=== PATIENT | female | born 1950 | race Caucasian/White ===

== ENCOUNTER 2016-03-06 08:53 | Emergency (ER) | payer MEDICARE, OTHER ==
[~2016-03-06] VITALS: Ht 157.5 cm; Wt 127.3 kg
[~2016-03-06 08:53] MED LIST: ALBU8.5H2 IH; BUTA1CAP39 PO; CLON0.3T PO; DULO60CA42 PO; EXEN5PEN2 SQ; FLUT16SP2 NS; FURO-128 PO; GABA300C PO; HYDR2TAB27 PO; INSU100V7 SUBQ; INSU3INS3 SUBQ; IPRA3AMP IH; LOVA20TA PO; METF500T4 PO; METO-272 PO; NORT25CA PO; OMEP-113 PO; POTA10CA42 PO; RIZA10TA26 PO; SOMA350 PO; SYMINH IH; [UNRECOGNIZED DRUG - CODE] PO
[2016-03-06 08:58] VITALS: BP 190/100; PULSE 86; RESP 15; O2SAT 94
--- NOTE | 2016-03-06 09:09 | ED.REPORT ---
HPI-Abd Pain F 40 and Over Date of Service Mar 06, 2016 ED Provider: Edwin Lugo MD Pt is a 65 year old female with a hx of DM, pancreatitis, rectal cancer, migraines and on 3L O2 at home for restrictive lung disease presenting to the ED complaining of 8/10 abdominal pain radiating around the left side onset 6 weeks ago. Associated symptoms include nausea, constipation (last BM 3 days ago) , SOB, back pain, vomiting x1 last night, swelling. She describes the pain as sometimes sharp and tight, at other times hot. Denies fever, blood in stool, chest pain, diarrhea, dysuria, cough, congestion. She denies hx of gallstones, kidney stones or abdominal surgery. Nursing Notes Stated Complaint: ABDOMINAL AND SIDE PAIN Chief Complaint: Female Abdominal Pain Nursing Notes Reviewed: Yes Allergies: Coded Allergies: divalproex sodium (Verified Allergy, Unknown, ANAPHYLAXIS, 05/20/14) hydrochlorothiazide (Verified Allergy, Unknown, UNKNOWN, 05/20/14) lisinopril (Verified Allergy, Unknown, COUGH, 05/20/14) Scheduled Budesonide/Formoterol 160-4.5 mcg Inh (Symbicort 160-4.5 mcg Inh) 1 Puff Inha 2 PUFF IH BID Clonidine (Clonidine) 0.3 Mg Tablet 0.12 MG PO BID Duloxetine (Cymbalta) 60 Mg Capsule.dr 120 MG PO DAILY Exenatide Inj (Byetta Inj) 5 Mcg/0.02 Ml Pen.injctr 5 MCG SQ BID Fluticasone Propionate (Flonase Nasal) 16 Gm [place].susp 1 SPRAY NS DAILY Furosemide (Lasix) 40 Mg Tablet 80 MG PO BID Gabapentin (Neurontin) 300 Mg Capsule 300 MG PO TID Insulin Glargine (Lantus U100 Insulin Vial) 100 Unit/Ml Vial 50 UNIT SUBQ QPM- INSULIN Insulin Glargine (Lantus U100 Insulin Vial) 100 Unit/Ml Vial 70 UNIT SUBQ Q am Insuln Asp Prt/Insulin Aspart (NovoLOG 70/30 U100 Insulin Flexpen) 100 Unit/Ml Unit 1 UNIT SUBQ HS Ipratropium/Albuterol Sulfate (Iprat-Albut 0.5-3(2.5) mg/3 mL Inhalant Soln) 3 Ml Ampul.neb 3 ML IH QID Lovastatin (Lovastatin) 20 Mg Tablet 20 MG PO HS Metformin (Metformin) 500 Mg Tablet 1,500 MG PO q am Metformin (Metformin) 500 Mg Tablet 1,000 MG PO q pm Metoprolol Succinate ER (Metoprolol Succinate ER) 50 Mg Tab.er.24h 50 MG PO BID Naproxen Sodium (Aleve) 220 Mg Tablet 440 MG PO HS Nortriptyline (Nortriptyline) 25 Mg Capsule 25 MG PO HS Omeprazole Magnesium (Omeprazole) 20 Mg Capsule.dr 20 MG PO BID Polyethylene Glycol 3350 (Miralax) 17 Gm Powd.pack 17 GM PO DAILY Potassium Chloride (Potassium Chloride) 10 Meq Capsule.er 30 MEQ PO DAILY TAKE WITH FOOD Scheduled PRN Albuterol HFA (Proair HFA) 8.5 Gm Hfa.aer.ad 2 PUFFS IH Q4-6H PRN PRN For Wheezing Albuterol HFA (Proair HFA) 8.5 Gm Hfa.aer.ad 2 PUFFS IH Q4-6H PRN PRN For Wheezing Butalbital/Acetamin/Caff 50-300-40 mg (Fioricet 50-300-40 mg) 1 Each Capsule 1- 2 EACH PO Q4 PRN PRN For Pain Carisoprodol (Carisoprodol) 350 Mg Tab 350 MG PO Q4 PRN PRN For Pain Docusate Sodium (Colace) 100 Mg Capsule 100 MG PO BID PRN PRN For Constipation Hydromorphone (Dilaudid) 2 Mg Tablet 1 MG PO Q4-6H PRN PRN For Pain Rizatriptan (Maxalt) 10 Mg Tablet 10 MG PO PRN PRN PRN For Pain General Time Seen by MD: 09:04 Chief Complaint Abdominal pain Hx Obtained From: Patient Arrived By: Walk-in Sudden in Onset?: No Onset Occurred: More than a week ago... (6 weeks) Symptom Duration: Since onset Progression since Onset: Constant Location: : LUQ Quality: Burning, Painful, Sharp Radiation: : Flank left Severity: Current: Pain level 8 out of 10 Severity: Maximum: Severe Associated with: Reports: Back pain, Constipation, Nausea, Vomiting, Denies: Chest pain, Diarrhea, Dysuria, Fever, Hematuria, Shortness of breath Recent Healthcare: No recent hospitalization, Recent doctor visit Similar Sx Previous: No Past Medical History Past Medical History Rectal cancer Pancreatitis 2009 related to Migraine medication (Depakote) Migraines Dyspnea on 3L O2 at home Pneumonia PE many years ago following neck surgery Back injury Reports: Asthma, Congestive heart failure, Hypertension Past Surgical History Last Colonoscopy was 10 years ago Neck surgery Smoking History Never Smoker Social History Alcohol Use: "Social" Ambulatory Status Independent Review of Systems Constitutional: Denies: Fever Respiratory: Reports: Shortness of breath, Denies: Non-productive cough Cardiovascular: Denies: Chest pain GI: Reports: Abdominal pain, Constipation, Nausea, Vomiting, Denies: Bloody/tarry stool, Diarrhea Female: Denies: Dysuria Musculoskeletal: Reports: Back pain, Extremity swelling Complete sys rev & neg: except as marked. Ears / Nose / Throat: Denies: Nasal congestion Physical Exam Vital Signs Vital Signs (First) Date Time Temp Pulse Resp B/P Pulse Ox O2 Delivery O2 Flow Rate FiO2 03/06/16 08:58 36.2 86 15 190/100 94 Nasal Cannula Initial VS: Reviewed Head / Eyes: Atraumatic, Normocephalic, PERRL ENT: Mucous membranes moist, Conjunctiva normal, No scleral icterus Neck: Supple, Non-tender, Full range of motion Skin: Warm, Dry, No cyanosis Neurologic: Alert, Oriented, Nonfocal Psychiatric: Mood/affect normal, Behavior normal, Normal thought content General/Constitutional: Awake, Alert, No acute distress, Well appearing Respiratory / Chest: No respiratory distress On Oxygen non labored breathing. Bilateral crackles. Abdomen: No guarding, No rebound Tenderness/Guarding/Rebound: Positive: Tender diffuse Increasing epigastric LUQ RUQ. Lower Extremity / Pelvis / MS: Neurologic intact, Vascular intact 1+ bilateral edema. Interpretation & Diagnostics Lab Results Interpretation Result Diagram: 03/06/16 0956 03/06/16 0956 Test 03/06/16 09:56 03/06/16 11:18 White Blood Count 7.8th/mm3 (3.8-10.1) Red Blood Count 3.92mil/mm3 (3.90-5.20) Hemoglobin 10.2g/dL (12.0-15.6) Hematocrit 34.4% (35.0-46.0) Mean Corpuscular Volume 87.8fL (81-100) Mean Corpuscular Hemoglobin 26.0pg (27.0-35.0) Mean Corpuscular Hemoglobin Concent 29.7% (32.0-37.0) Red Cell Distribution Width 15.3% (12.3-15.4) Platelet Count 249bil/L (150-400) Neutrophils (%) (Auto) 75.1% (40-74) Lymphocytes (%) (Auto) 15.1% (14-46) Monocytes (%) (Auto) 7.1% (4-12) Eosinophils (%) (Auto) 2.0% (0-5) Basophils (%) (Auto) 0.3% (0-3) Prothrombin Time 10.3sec (8.1-12.5) Prothromb Time International Ratio 0.96ratio D-Dimer 0.6mg/L (<0.50) Sodium Level 138mEq/L (134-144) Potassium Level 4.4mEq/L (3.5-5.2) Chloride Level 94mEq/L (97-108) Carbon Dioxide Level 32mmol/L (18-29) Blood Urea Nitrogen 12mg/dL (8-27) Creatinine 0.64mg/dL (0.57-1.00) Estimat Glomerular Filtration Rate 133mL/min (>59) Glucose Level 245mg/dL (60-99) Calcium Level 9.6mg/dL (8.5-10.1) Magnesium Level 1.6mg/dL (1.6-2.6) Total Bilirubin 0.4mg/dL (0.0-1.2) Aspartate Amino Transf (AST/SGOT) 14U/L (0-50) Alanine Aminotransferase (ALT/SGPT) 17U/L (0-32) Alkaline Phosphatase 110U/L (25-165) Troponin T 0.010ug/L (0.0-0.011) Total Protein 7.7g/dL (6.4-8.4) Albumin 4.1g/dL (3.4-5.0) Lipase 22U/L (13-60) Urine Color Straw (YELLOW) Urine Appearance Clear (CLEAR,HAZY) Urine pH 7.0 (5.0-8.0) Urine Specific [place] 1.013 (1.003-1.035) Urine Protein Negativemg/dL (NEG,TRACE) Urine Glucose (UA) 100mg/dL (NEGATIVE) Urine Ketones Negativemg/dL (NEGATIVE) Urine Occult Blood Trace (NEGATIVE) Urine Nitrite Negative (NEGATIVE) Urine Bilirubin Negative (NEGATIVE) Urine Urobilinogen Normalmg/dL (NORMAL) Urine Leukocyte Esterase Negative (NEGATIVE) Urine RBC 0-2/hpf (0-2) Urine WBC 0-5/hpf (0-5) Urine Epithelial Cells Few/hpf (NONE-MOD) Urine Crystals None seen (NONE SEEN) Urine Bacteria None/hpf (NONE-FEW) Urine Hyaline Casts None/lpf (NONE) Urine Granular Casts None seen (NONE SEEN) Urine Waxy Casts None seen (NONE SEEN) Urine Red Blood Cell Casts None seen (NONE SEEN) Urine White Blood Cell Casts None seen (NONE SEEN) Urine Mucus None seen (None Seen) Urine Trichomonas None seen (NONE SEEN) Urine Yeast None (NONE SEEN) Urinalysis Comment None Urine Culture Reflexed Not indicated ECG Interpretation ECG Interpretation: Q waves in 3. No ST changes. Time: 10:19 Interpreted by: ED physician Normal ECG Interpretation: Normal rate (77), Normal sinus rhythm X-Ray Chest Interpretation Chest Xray Interpretation: IMPRESSION: Left basilar atelectasis or pneumonia. Dictated by: Kala Martinez M.D. on 03/06/2016 at 9:40 View: Portable, 1 view Interpretation / Wet Read by: Interpret - Radiologist CT Chest Interpretation IMPRESSION: 1. No evidence for acute central pulmonary embolism. 2. Bilateral ground glass infiltrates and areas of trapping. Dictated by: Kala Martinez M.D. on 03/06/2016 at 12:04 Study type: CT pulm angiogram Interpretation / Wet Read by: Interpret - Radiologist CT Abd / Pelvis Interpretation IMPRESSION: 1. No acute intra-abdominal/pelvic process. 2. Hepatic steatosis. 3. Diverticulosis. No active diverticulitis. Dictated by: Kala Martinez M.D. on 03/06/2016 at 12:16 Study type: Abdominal CT IV contrast Interpretation / Wet Read by: Interpret - Radiologist Re-Eval/Medical Decision Med Decision/Clinical Course 65-year-old female history of rectal cancer status post resection, diabetes, pancreatitis, diabetes presenting complaining of abdominal pain 3 weeks. Epigastric left upper quadrant tenderness no rebound or guarding. Bowel sounds stable. Labs unremarkable. No evidence of pancreatitis or infection. CT abdomen and pelvis with diverticulosis no acute pathology. D-dimer mildly elevated at 0.6 with history of PE in the past therefore CT Angio chest performed with no evidence of PE. Patient with complaint of constipation. Will be treated with MiraLAX and stool softener. Return precautions given. Her abdominal pain resolved completely prior to discharge. Follow-up primary doctor 2-3 days as needed. Re-Evaluation/Progress #1: Time of Eval: 09:25 Patient Status: Condition improved Re-Evaluation/Progress Note: Discussed plan for CT scan with contrast. Re-Evaluation/Progress #2: Time of Eval: 11:35 Patient Status: Condition improved Re-Evaluation/Progress Note: Discussed lab results and plan for chest CT as well due to elevated D-dimer. Pain is improved. Counseled Regarding: Diagnosis, Lab results, Need for follow-up, When/why to return to ED Discharge & Departure Primary Impression: Abdominal pain Abdominal location: generalized Qualified Code: R10.84 - Generalized abdominal pain Additional Impression: Diverticulosis Diverticulosis site: unspecified location Diverticulosis bleeding: diverticulosis without bleeding Qualified Code: K57.90 - Diverticulosis of intestine, part unspecified, without perforation or abscess without bleeding Disposition: Home Discharge Condition All VS Reviewed: Yes Condition: Improved Additional Instructions: All of your scans and labs came back normal. No dangerous cause for your abdominal pain was identified. Take Miralax, 1 cap full per night mixed with Powerade or Gatorade. Take the stool softener twice a day as well. Return to the ER with any new or worsening symptoms. Follow up with your primary care doctor if your symptoms persist. Referrals: Wil Bautista MD (PCP) Kavin Dobson MD Attestation Portions of this note were transcribed by Neelima. I, Dr. Lugo personally performed the history, physical exam and medical decision-making; I reviewed and confirmed the accuracy of the information in the transcribed note. Signed by: Erika Carson, 03/06/2016 and 1252. copies to: Wil Bautista MD; Kavin Dobson MD, Ben M MD Mar 06, 2016 09:09 NEELIMA GIPSON Mar 06, 2016 09:32
[2016-03-06] MEDS ORDERED: 0.9% Sodium Chloride 1,000 ML IV ONE (09:21)
[2016-03-06] MEDS ORDERED: Ondansetron 2 mg/mL 2 mL Inj IVPUSH PRN (09:25)
[2016-03-06] MEDS ORDERED: Iohexol 300 mg/mL 30 mL Inj PO ONE (09:25)
--- NOTE | 2016-03-06 09:42 | DRSVH ---
PROCEDURE: X-RAY CHEST ONE VIEW, PORTABLE ([id number]) INDICATIONS: dyspnea TECHNIQUE: One view of the chest was acquired. COMPARISON: [facility], CT, CT ABD PELVIS W CON, 02/03/2016, 12:15. [facility], CR, CHEST 1VW (PORTABLE), 03/07/2013, 16:38. FINDINGS: Surgical changes and devices: Surgical clips in the left breast. Lungs and pleura: The basilar opacity may be atelectasis or infiltrate. No pleural effusions or pneum othorax. Mediastinum: Mediastinal contours appear normal. Heart size is normal. Bones and chest wall: No suspicious bony lesions. Overlying soft tissues appear unremarkable. IMPRESSION: Left basilar atelectasis or pneumonia. Dictated by: Kala Martinez M.D. on 03/06/2016 at 9:40 Approved by: Kala Martinez M.D. on 03/06/2016 at 9:42
[2016-03-06 10:09] LABS: BASOPHILS % (AUTO) 0.3 % (0-3); MONOCYTES % (AUTO) 7.1 % (4-12); Mean Corpuscular Volume 87.8 fL (81-100); NEUTROPHILS % (AUTO) 75.1 % (40-74); Platelet Count 249 bil/L (150-400)
[2016-03-06 10:29] LABS: INR 0.96 ratio
[2016-03-06 10:37] LABS: TROPONIN T 0.01 ug/L (0.0-0.011)
[2016-03-06 10:48] LABS: Magnesium 1.6 mg/dL (1.6-2.6)
[2016-03-06 12:14] LABS: APPEARANCE,URINE CLEAR (CLEAR,HAZY); COLOR,URINE STRAW (YELLOW); OCCULT BLOOD,URINE TRACE (NEGATIVE); UROBILINOGEN,URINE NORMAL (NORMAL)
--- NOTE | 2016-03-06 12:15 | DRSVH ---
PROCEDURE: CT ANGIO CHEST PULMONARY EMBOLISM ([id number]) INDICATIONS: 65 year old woman with dyspnea elevated ddimer, h/o PE. TECHNIQUE: After the administration of intravenous contrast, 2 mm thick sections acquired from the pulmonary api devi to the posterior costophrenic angles. 3-dimensional maximum intensity projection (MIP) coronal a nd sagittal reformats were then acquired through the thorax. For radiation dose reduction, the follo wing was used: automated exposure control, adjustment of mA and/or kV according to patient size. COMPARISON: [facility], CR, XR CHEST 1VW (PORTABLE), 03/06/2016, 9:21. [facility], CT, CT CHEST HIGH RESOLUTION, 09/26/2015, 14:15. [facility], CT, CHEST ANGIO-PE, , 18:37. FINDINGS: Image quality: Excellent. Pulmonary arteries: Pulmonary arteries are normal in size, and demonstrate no intraluminal filling d efects to suggest central pulmonary embolism. Lungs and pleura: There are bilateral ground glass infiltrates. Area of lucency suggests air trapping . No pleural effusions or pneumothorax. Central and peripheral airways are patent. Mediastinum: Heart size is normal, without pericardial effusion. Borderline enlarged mediastinal ly mph nodes are noted measuring up to 1 cm in the subcarinal region. Thoracic aorta is normal in calib er and enhancement. Esophagus is normal in caliber, without hiatal hernia. Bones and chest wall: No suspicious bony lesions. Ribs and thoracic spine appear intact throughout. Thyroid gland is normal. No axillary or supraclavicular adenopathy. Abdomen: Mild hepatic fatty infiltration. Visualized upper abdominal solid organs otherwise appear n ormal in the early arterial phase of enhancement. IMPRESSION: 1. No evidence for acute central pulmonary embolism. 2. Bilateral ground glass infiltrates and air trapping. 3. Borderline enlarged mediastinal lymph nodes, most likely reactive. Dictated by: Kala Martinez M.D. on 03/06/2016 at 12:04 Transcribed by: KRISTEN on 03/06/2016 at 12:16 Approved by: Kala Martinez M.D. on 03/07/2016 at 10:09
--- NOTE | 2016-03-06 12:21 | DRSVH ---
PROCEDURE: CT ABDOMEN AND PELVIS WITH CONTRAST ([id number]) INDICATIONS: Left upper quadrant abdominal pain. TECHNIQUE: After the administration of intravenous contrast, 5 mm thick sections acquired from the diaphragm to the symphysis. 5 mm coronal and sagittal reformats were acquired. For radiation dose reduction, the following was used: automated exposure control, adjustment of mA and/or kV according to patient siz e. COMPARISON: [facility], CT, CT ABD PELVIS W CON, 02/03/2016, 12:15. FINDINGS: Image quality: Excellent. ABDOMEN: Lung bases: Groundglass infiltrates in lung bases with mosaic attenuation. Heart size is normal. Solid organs: There is diffuse hepatic fatty infiltration. Liver and spleen are normal in size and e nhancement. Gallbladder is normal. Biliary system is non dilated. Pancreas enhances normally. No adrenal nodules. Low density nodules in kidneys are likely renal cysts. Kidneys demonstrate normal s ize and enhancement, without hydronephrosis. Peritoneum and bowel: There are scattered colonic diverticula. No evidence for active diverticulitis . Normal appearance of appendix. Bowel loops demonstrate normal wall thickness and caliber. No free fluid or air. Nodes and vessels: No retroperitoneal or mesenteric adenopathy by size criteria. Aorta and inferior vena cava are normal in size. Miscellaneous: No ventral hernias. PELVIS: Genitourinary: Bladder wall thickness is normal. Miscellaneous: No inguinal hernias or adenopathy. Bones: No suspicious bony lesions. No vertebral body compression fractures. IMPRESSION: 1. No acute intra-abdominal/pelvic process. 2. Hepatic steatosis. 3. Diverticulosis. No active diverticulitis. Dictated by: Kala Martinez M.D. on 03/06/2016 at 12:16 Approved by: Kala Martinez M.D. on 03/06/2016 at 12:20
[2016-03-06] MEDS ORDERED: POLY17PO6 PO (12:50)
[2016-03-06] MEDS ORDERED: DOCU-41 PO (12:50)
[2016-03-06 13:04] VITALS: BP 177/87; PULSE 78; RESP 19; O2SAT 96
== END 2016-03-06 13:07 | disposition home or self-care (01) ==
LOC: SED 08:53
DX: R10.84 Generalized abdominal pain (principal); K57.90 Diverticulosis of intestine, part unspecified, without perforation or abscess without bleeding; R06.02 Shortness of breath; M54.9 Dorsalgia, unspecified; I11.0 Hypertensive heart disease with heart failure; E11.59 Type 2 diabetes mellitus with other circulatory complications; I50.9 Heart failure, unspecified; J45.909 Unspecified asthma, uncomplicated; E11.9 Type 2 diabetes mellitus without complications; Z79.4 Long term (current) use of insulin; Z79.84 Long term (current) use of oral hypoglycemic drugs; Z88.8 Allergy status to other drugs, medicaments and biological substances
CPT/HCPCS: 36415; 71010; 71275; 74177; 80053; 81000; 83690; 83735; 84484; 85025; 85379; 85610; 93005; 96361; 96374; 96375; 96376; 99285; J2270; J2405; J7030; Q9967

== ENCOUNTER 2016-06-15 11:07 | Emergency (ER) | payer MEDICARE, OTHER ==
[~2016-06-15 11:07] MED LIST changes: +DOCU-41 PO; +POLY17PO6 PO
--- NOTE | 2016-06-15 11:18 | ED.REPORT ---
HPI-Extremity Problem Lower Date of Service June 15, 2016 ED Provider: The patient is a 65 year old female with history of asthma, hypertension, congestive heart failure on 3L O2 at home, pulmonary embolism, rectal cancer, and pancreatitis who was brought to the emergency department by EMS for left groin pain. The patient states she was walking out of the restroom and turned direction when she felt a "tear/pop." She felt pain immediately. She was given fentanyl by medics with moderate pain relief. She has not been able to walk since the injury occurred. She denies any other injuries or traumas. She did not fall or hit her head. Nursing Notes Stated Complaint: LEFT HIP PAIN Nursing Notes Reviewed: Yes Allergies: Coded Allergies: divalproex sodium (Verified Allergy, Unknown, ANAPHYLAXIS, 05/20/14) hydrochlorothiazide (Verified Allergy, Unknown, UNKNOWN, 05/20/14) lisinopril (Verified Allergy, Unknown, COUGH, 05/20/14) Scheduled Budesonide/Formoterol 160-4.5 mcg Inh (Symbicort 160-4.5 mcg Inh) 1 Puff Inha 2 PUFF IH BID Clonidine (Clonidine) 0.3 Mg Tablet 0.12 MG PO BID Duloxetine (Cymbalta) 60 Mg Capsule.dr 120 MG PO DAILY Exenatide Inj (Byetta Inj) 5 Mcg/0.02 Ml Pen.injctr 5 MCG SQ BID Fluticasone Propionate (Flonase Nasal) 16 Gm [place].susp 1 SPRAY NS DAILY Furosemide (Lasix) 40 Mg Tablet 80 MG PO BID Gabapentin (Neurontin) 300 Mg Capsule 300 MG PO TID Insulin Glargine (Lantus U100 Insulin Vial) 100 Unit/Ml Vial 50 UNIT SUBQ QPM- INSULIN Insulin Glargine (Lantus U100 Insulin Vial) 100 Unit/Ml Vial 70 UNIT SUBQ Q am Insuln Asp Prt/Insulin Aspart (NovoLOG 70/30 U100 Insulin Flexpen) 100 Unit/Ml Unit 1 UNIT SUBQ HS Ipratropium/Albuterol Sulfate (Iprat-Albut 0.5-3(2.5) mg/3 mL Inhalant Soln) 3 Ml Ampul.neb 3 ML IH QID Lovastatin (Lovastatin) 20 Mg Tablet 20 MG PO HS Metformin (Metformin) 500 Mg Tablet 1,500 MG PO q am Metformin (Metformin) 500 Mg Tablet 1,000 MG PO q pm Metoprolol Succinate ER (Metoprolol Succinate ER) 50 Mg Tab.er.24h 50 MG PO BID Naproxen Sodium (Aleve) 220 Mg Tablet 440 MG PO HS Nortriptyline (Nortriptyline) 25 Mg Capsule 25 MG PO HS Omeprazole Magnesium (Omeprazole) 20 Mg Capsule.dr 20 MG PO BID Polyethylene Glycol 3350 (Miralax) 17 Gm Powd.pack 17 GM PO DAILY Potassium Chloride (Potassium Chloride) 10 Meq Capsule.er 30 MEQ PO DAILY TAKE WITH FOOD Scheduled PRN Albuterol HFA (Proair HFA) 8.5 Gm Hfa.aer.ad 2 PUFFS IH Q4-6H PRN PRN For Wheezing Albuterol HFA (Proair HFA) 8.5 Gm Hfa.aer.ad 2 PUFFS IH Q4-6H PRN PRN For Wheezing Butalbital/Acetamin/Caff 50-300-40 mg (Fioricet 50-300-40 mg) 1 Each Capsule 1- 2 EACH PO Q4 PRN PRN For Pain Carisoprodol (Carisoprodol) 350 Mg Tab 350 MG PO Q4 PRN PRN For Pain Docusate Sodium (Colace) 100 Mg Capsule 100 MG PO BID PRN PRN For Constipation Hydromorphone (Dilaudid) 2 Mg Tablet 1 MG PO Q4-6H PRN PRN For Pain Rizatriptan (Maxalt) 10 Mg Tablet 10 MG PO PRN PRN PRN For Pain General Time Seen by MD: 11:17 Chief Complaint Other (left groin pain) Hx Obtained From: Patient, Spouse, EMS Arrived By: Ambulance Onset Occurred: Just prior to arrival Context of Onset: Other (walking) Symptom Duration: Since onset Context: Occurred at: Home injury Location: : Hip left (and left groin) Quality: Painful Severity: Current: Moderate Severity: Maximum: Severe Pertinent Negative: Pt denies other symptoms Exacerbated by: Range of motion, Movement Recent Healthcare: No recent doctor visit, No recent hospitalization Similar Sx Previous: No Past Medical History Past Medical History Rectal cancer Pancreatitis 2009 related to Migraine medication (Depakote) Migraines Dyspnea on 3L O2 at home Pneumonia PE many years ago following neck surgery Back injury Reports: Asthma, Congestive heart failure, Hypertension Past Surgical History Last Colonoscopy was 10 years ago Neck surgery Family History Noncontributory Smoking History Never Smoker Social History Alcohol Use: "Social" Other Social History: Good social support, , Local resident Ambulatory Status Independent Review of Systems Musculoskeletal: Reports: Joint pain, Denies: Back pain, Neck pain Neurologic: Denies: Change LOC, Headache, Syncope Complete sys rev & neg: except as marked. Physical Exam Initial Vital Signs Vital Signs (First) Date Time Temp Pulse Resp B/P Pulse Ox O2 Delivery O2 Flow Rate FiO2 06/15/16 11:22 36.8 87 20 215/94 99 Nasal Cannula 4 Initial VS: Reviewed General/Constitutional: Well-developed, Well-nourished Head / Eyes: Atraumatic, Normocephalic, PERRL ENT: Mucous membranes moist, Conjunctiva normal, No scleral icterus Neck: Supple, Non-tender, Full range of motion Respiratory: Breath sounds normal, Clear to auscultation, No respiratory distress Cardiovascular: Regular rate & rhythm, Heart sounds normal, Intact distal pulses Abdomen / GI: Soft, Non-tender, No guarding, No rebound, No distention Upper Extremities: Vascular intact, Neuro intact, No swelling, No tenderness Skin: Warm, Dry, No cyanosis Neurologic: Alert, Oriented, Nonfocal Psychiatric: Mood/affect normal, Behavior normal, Normal thought content Lower Extremity / Pelvis / MS: Neurologic intact, Vascular intact FROM of left hip but she does have increased pain with movement of her left leg. No bony deformity. No swelling. No bruising. Ankle / Foot: Neurologic intact, Vascular intact Interpretation & Diagnostics X-Ray Interpretation Xray Interpretation: IMPRESSION: 1. Degenerative change. No acute radiographic findings. If there is Guero suspicion for occult fracture, CT of the hip is recommended. Dictated by: Cassi Ceron M.D. on 06/15/2016 at 12:12 X-Ray Ordered: Pelvis, Hip left Interpretation / Wet Read by: Interpret - Radiologist Re-Eval/Medical Decision Med Decision/Clinical Course 65-year-old female complaining of left hip pain started when she turned ball moving today. Tender left lower extremity proximal lateral hip. Left hip full range of motion no tenderness on range of motion. X-ray no fracture. Patient ambulatory pain improved with Toradol. Likely strain versus sprain. Recommend follow-up with primary doctor. Return precautions given. Monty. Source of Hx: Old records, EMS, Family Re-Evaluation/Progress : Time of Eval: 12:42 Re-Evaluation/Progress Note: Rechecked the patient. Discussed plan for discharge. All questions were addressed. Counseled Regarding: Diagnosis, Need for follow-up, When/why to return to ED Discharge & Departure Impression: Primary Impression: Left hip pain Additional Impression: Muscle strain Disposition: Home Discharge Condition All VS Reviewed: Yes Condition: Stable Additional Instructions: Thank you for entrusting us with your care today. Your x-ray of your left hip today is reassuring. There is no evidence of any acute fractures. Weight bear as tolerated Take ibuprofen as needed for your pain. Followup with your primary doctor in 1 week if your pain persists. Seek care sooner for increased pain, numbness, weakness, or any other new or concerning symptoms. Referrals: Wil Bautista MD (PCP) Scribe Attestation Portions of this note were transcribed by Josey Stover. I, Dr. Lugo personally performed the history, physical exam and medical decision-making; I reviewed and confirmed the accuracy of the information in the transcribed note. Signed by: Erika Tyson, 06/15/2016 at 1255. copies to: Wil Bautista MD, Ben M MD June 15, 2016 11:18 Josey Stover June 15, 2016 11:26
[2016-06-15 11:22] VITALS: BP 215/94; PULSE 87; RESP 20; O2SAT 99
--- NOTE | 2016-06-15 12:14 | DRSVH ---
PROCEDURE: X-RAY PELVIS W/LAT HIP (LT) ([id number]) INDICATIONS: L hip pain unable to ambulate TECHNIQUE: AP pelvis with lateral view(s) of the left hip(s). COMPARISON: None. FINDINGS: Bones: Severe degenerative changes are present at the right hip joint. Moderate degenerative changes are present at the left hip joint. No acute fracture dislocation visualized. Soft tissues: The visualized bowel gas pattern is normal. No suspicious soft tissue calcifications. Surgical clips are projected over the left obturator ring. IMPRESSION: 1. Degenerative change. No acute radiographic findings. If there is Guero suspicion for occult frac ture, CT of the hip is recommended. Dictated by: Cassi Ceron M.D. on 06/15/2016 at 12:12 Approved by: Cassi Ceron M.D. on 06/15/2016 at 12:13
[2016-06-15 13:40] VITALS: BP 168/92; PULSE 87; RESP 20; O2SAT 99
== END 2016-06-15 13:49 | disposition home or self-care (01) ==
LOC: SED 11:07 → EDBD 11:07 → SED 13:49
DX: S76.012A Strain of muscle, fascia and tendon of left hip, initial encounter (principal); X50.0XXA Overexertion from strenuous movement or load, initial encounter; Y93.01 Activity, walking, marching and hiking; Y92.019 Unspecified place in single-family (private) house as the place of occurrence of the external cause; Y99.8 Other external cause status; I11.0 Hypertensive heart disease with heart failure; J45.909 Unspecified asthma, uncomplicated; Z79.4 Long term (current) use of insulin; Z79.84 Long term (current) use of oral hypoglycemic drugs; Z88.8 Allergy status to other drugs, medicaments and biological substances
CPT/HCPCS: 73501; 96374; 99284; J1885

== ENCOUNTER 2016-10-20 14:56 | Emergency (ER) | payer MEDICARE, OTHER ==
[~2016-10-20] VITALS: Ht 157.5 cm; Wt 129.6 kg
[~2016-10-20 14:56] MED LIST changes: -METO-272 PO; +METO-369 PO
[2016-10-20 15:09] VITALS: BP 148/57; PULSE 72; RESP 18; O2SAT 90
[2016-10-20 15:33] LABS: BASOPHILS % (AUTO) 0.5 % (0-3); EOSINOPHILS % (AUTO) 2.7 % (0-5); MONOCYTES % (AUTO) 9.4 % (4-12); Mean Corpuscular Hemoglobin 26.3 pg (27.0-35.0); Mean Corpuscular Volume 85.4 fL (81-100); NEUTROPHILS % (AUTO) 60.8 % (40-74); Platelet Count 221 bil/L (150-400)
[2016-10-20 15:48] LABS: INR 0.92 ratio
--- NOTE | 2016-10-20 15:55 | DRSVH ---
PROCEDURE: X-RAY CHEST, TWO VIEWS ([id number]) INDICATIONS: 65 year-old female with weakness. TECHNIQUE: 2 views of the chest were acquired. COMPARISON: [facility], CR, XR CHEST 1VW (PORTABLE), 03/06/2016, 9:21. [facility], CR, CHEST 2VW, 08/06/2013, 12:15. [facility], CR, CHEST 2VW, 04/27/2013, 16:59. FINDINGS: Surgical changes and devices: Left breast surgical clips are again noted, as well as anterior cervica l spine fixation hardware. Lungs and pleura: There is new small loculated pleural fluid within the right minor fissure. No pneum othorax. Lungs are clear. Mediastinum: Mediastinal contours are normal. Mild cardiomegaly is unchanged. Bones and chest wall: No suspicious bony abnormalities. Soft tissues appear unremarkable. IMPRESSION: Mild cardiomegaly as before. New small loculated pleural fluid within the right minor fis sure is of uncertain etiology and clinical significance. Dictated by: Guillermo Infante M.D. on 10/20/2016 at 15:51 Approved by: Guillermo Infante M.D. on 10/20/2016 at 15:52
[2016-10-20 15:57] LABS: TROPONIN T < 0.010 ug/L (0.0-0.011)
[2016-10-20 16:06] LABS: Magnesium 1.7 mg/dL (1.6-2.6)
--- NOTE | 2016-10-20 16:08 | ED.REPORT ---
HPI-General Illness Date of Service Oct 20, 2016 ED Provider: Lul Juares MD Patient is a 65 year old female with a history of CHF, restrictive airway disease on 3L of oxygen at home, hypertension, previous PE, diabetes, rectal cancer and hypertension who presents to the ED via EMS after a ground level fall. She complains of bilateral knee pain, right ankle pain, generalized weakness at baseline and odorous/dark urine over the last couple days. Patient denies hitting her head, losing consciousness, headache, chest pain, dysuria, shortness of breath, abdominal pain, vomiting, diarrhea, slurred speech, facial droop or one sided weakness. Patient reports that she generally has knee pain due to her osteoarthritis but it has increased after her fall. She was trying to get out of her lift chair while at home when she fell on her knees to the ground. The patient states that she was unable to get up on her own after the fall and normally uses a cane/walker to help her walk inside and her wheelchair outside. Nursing Notes Stated Complaint: WEAKNESS Chief Complaint: General Complaint Nursing Notes Reviewed: Yes Allergies: Coded Allergies: divalproex sodium (Verified Allergy, Unknown, ANAPHYLAXIS, 10/20/16) hydrochlorothiazide (Verified Allergy, Unknown, UNKNOWN, 10/20/16) lisinopril (Verified Allergy, Unknown, COUGH, 10/20/16) Scheduled Budesonide/Formoterol 160-4.5 mcg Inh (Symbicort 160-4.5 mcg Inh) 1 Puff Inha 2 PUFF IH BID Ciprofloxacin (Ciprofloxacin) 500 Mg Tablet 500 MG PO BID Clonidine (Clonidine) 0.3 Mg Tablet 0.12 MG PO BID Duloxetine (Cymbalta) 60 Mg Capsule.dr 120 MG PO DAILY Exenatide Inj (Byetta Inj) 5 Mcg/0.02 Ml Pen.injctr 5 MCG SQ BID Fluticasone Propionate (Flonase Nasal) 16 Gm [place].susp 1 SPRAY NS DAILY Furosemide (Lasix) 40 Mg Tablet 80 MG PO BID Gabapentin (Neurontin) 300 Mg Capsule 300 MG PO TID Insulin Glargine (Lantus U100 Insulin Vial) 100 Unit/Ml Vial 50 UNIT SUBQ QPM- INSULIN Insulin Glargine (Lantus U100 Insulin Vial) 100 Unit/Ml Vial 70 UNIT SUBQ Q am Insuln Asp Prt/Insulin Aspart (NovoLOG 70/30 U100 Insulin Flexpen) 100 Unit/Ml Unit 1 UNIT SUBQ HS Ipratropium/Albuterol Sulfate (Iprat-Albut 0.5-3(2.5) mg/3 mL Inhalant Soln) 3 Ml Ampul.neb 3 ML IH QID Lovastatin (Lovastatin) 20 Mg Tablet 20 MG PO HS Metformin (Metformin) 500 Mg Tablet 1,500 MG PO q am Metformin (Metformin) 500 Mg Tablet 1,000 MG PO q pm Metoprolol Succinate ER (Metoprolol Succinate ER) 50 Mg Tab.er.24h 50 MG PO BID Naproxen Sodium (Aleve) 220 Mg Tablet 440 MG PO HS Nortriptyline (Nortriptyline) 25 Mg Capsule 25 MG PO HS Omeprazole Magnesium (Omeprazole) 20 Mg Capsule.dr 20 MG PO BID Polyethylene Glycol 3350 (Miralax) 17 Gm Powd.pack 17 GM PO DAILY Potassium Chloride (Potassium Chloride) 10 Meq Capsule.er 30 MEQ PO DAILY TAKE WITH FOOD Scheduled PRN Albuterol HFA (Proair HFA) 8.5 Gm Hfa.aer.ad 2 PUFFS IH Q4-6H PRN PRN For Wheezing Albuterol HFA (Proair HFA) 8.5 Gm Hfa.aer.ad 2 PUFFS IH Q4-6H PRN PRN For Wheezing Butalbital/Acetamin/Caff 50-300-40 mg (Fioricet 50-300-40 mg) 1 Each Capsule 1- 2 EACH PO Q4 PRN PRN For Pain Carisoprodol (Carisoprodol) 350 Mg Tab 350 MG PO Q4 PRN PRN For Pain Docusate Sodium (Colace) 100 Mg Capsule 100 MG PO BID PRN PRN For Constipation Hydromorphone (Dilaudid) 2 Mg Tablet 1 MG PO Q4-6H PRN PRN For Pain Rizatriptan (Maxalt) 10 Mg Tablet 10 MG PO PRN PRN PRN For Pain General Time Seen by MD: 15:08 Chief Complaint Weakness Hx Obtained From: Patient Arrived By: Ambulance Sudden in Onset?: Yes Onset Occurred: 1 - 4 hours ago Location: : Ankle right: Knee left: Knee right Quality: Painful Severity: Current: Moderate Similar Sx Previous: No Past Medical History Past Medical History Rectal cancer Pancreatitis 2008 related to Migraine medication (Depakote) Migraines Dyspnea on 3L O2 at home Pneumonia PE many years ago following neck surgery Back injury Reports: Asthma, Congestive heart failure, Hypertension Past Surgical History Last Colonoscopy was 10 years ago Neck surgery Family History Noncontributory Smoking History Never Smoker Social History Alcohol Use: "Social" Other Social History: Good social support, , Local resident Ambulatory Status Independent Review of Systems Full Review of Systems Constitutional: Reports: Weakness - generalized Respiratory: Denies: Shortness of breath Cardiovascular: Denies: Chest pain GI: Denies: Abdominal pain, Diarrhea, Vomiting Female: Denies: Dysuria Musculoskeletal: Reports: Extremity pain Neurologic: Denies: Change LOC, Headache, Slurred speech, Weakness Complete sys rev & neg: except as marked. Physical Exam Vital Signs Vital Signs Date Time Temp Pulse Resp B/P Pulse Ox O2 Delivery O2 Flow Rate FiO2 10/20/16 18:20 74 31 123/92 98 Nasal Cannula 3 10/20/16 18:03 74 31 123/92 98 Nasal Cannula 3 10/20/16 17:03 70 22 145/66 99 Nasal Cannula 3 10/20/16 16:30 71 23 173/64 99 Nasal Cannula 3 10/20/16 15:09 36.7 72 18 148/57 90 Initial VS: Reviewed General/Constitutional: Awake, Alert answering questions appropriately good oxygen saturation with nasal canulation Head / Eyes: Atraumatic, Normocephalic, PERRL, EOMI ENT: Atraumatic, Airway patent Mouth: Positive: Mucous membranes dry Neck: Atraumatic, Supple, Full range of motion, Non-tender, No midline vertebral tend Respiratory / Chest: Atraumatic, Breath sounds = bilat, No respiratory distress mild expiratory wheezes Cardiovascular: Heart rate NL, Regular rhythm, Heart sounds NL Abdomen: Atraumatic, Soft, Non-tender, No distention Back: Atraumatic, Non-tender, No midline vertebral tend well healed midline surgical scars along the upper thoracic and lumbar region no bony tenderness or step offs Upper Extremities Upper Extremity / MS: Atraumatic, Inspection NL equal strength bilaterally strong radial pulses Lower Extremity / Pelvis / MS: Atraumatic, Pelvis stable no hip tenderness toes well profused bilaterally bilateral nees atraumatic right ankle tenderness about the medial aspect well healed surgical scar from previous vein stripping procedure on the left lower extremity equal strength bilaterally Skin: Atraumatic, Color NL, No rash, Warm, Dry well profused skin Neurologic: Oriented X3, Speech NL no pronate or drift bilaterally Interpretation & Diagnostics Lab Results Interpretation Result Diagram: 10/20/16 1529 10/20/16 1707 Test 10/20/16 15:29 10/20/16 15:59 10/20/16 17:07 White Blood Count 8.1th/mm3 (3.8-10.1) Red Blood Count 4.26mil/mm3 (3.90-5.20) Hemoglobin 11.2g/dL (12.0-15.6) Hematocrit 36.4% (35.0-46.0) Mean Corpuscular Volume 85.4fL (81-100) Mean Corpuscular Hemoglobin 26.3pg (27.0-35.0) Mean Corpuscular Hemoglobin Concent 30.8% (32.0-37.0) Red Cell Distribution Width 15.3% (12.3-15.4) Platelet Count 221bil/L (150-400) Neutrophils (%) (Auto) 60.8% (40-74) Lymphocytes (%) (Auto) 26.5% (14-46) Monocytes (%) (Auto) 9.4% (4-12) Eosinophils (%) (Auto) 2.7% (0-5) Basophils (%) (Auto) 0.5% (0-3) Prothrombin Time 9.8sec (8.1-12.5) Prothromb Time International Ratio 0.92ratio Sodium Level 137mEq/L (134-144) Chloride Level 95mEq/L (97-108) Carbon Dioxide Level 26mmol/L (18-29) Blood Urea Nitrogen 18mg/dL (8-27) Creatinine 0.86mg/dL (0.57-1.00) Estimat Glomerular Filtration Rate 95mL/min (>59) Glucose Level 82mg/dL (60-99) Calcium Level 10.0mg/dL (8.5-10.1) Magnesium Level 1.7mg/dL (1.6-2.6) Total Bilirubin 0.3mg/dL (0.0-1.2) Aspartate Amino Transf (AST/SGOT) 29U/L (0-50) Alanine Aminotransferase (ALT/SGPT) 32U/L (0-32) Alkaline Phosphatase 99U/L (25-165) Troponin T < 0.010ug/L (0.0-0.011) Pro-B-Type Natriuretic Peptide 85.76pg/mL (0-301) Total Protein 8.0g/dL (6.4-8.4) Albumin 4.3g/dL (3.4-5.0) Urine Color Straw (YELLOW) Urine Appearance Clear (CLEAR,HAZY) Urine pH 6.0 (5.0-8.0) Urine Specific [place] 1.005 (1.003-1.035) Urine Protein Negativemg/dL (NEG,TRACE) Urine Glucose (UA) 100mg/dL (NEGATIVE) Urine Ketones Negativemg/dL (NEGATIVE) Urine Occult Blood Negative (NEGATIVE) Urine Nitrite Positive (NEGATIVE) Urine Bilirubin Negative (NEGATIVE) Urine Urobilinogen Normalmg/dL (NORMAL) Urine Leukocyte Esterase Trace (NEGATIVE) Urine RBC 0-2/hpf (0-2) Urine WBC 0-5/hpf (0-5) Urine Epithelial Cells None/hpf (NONE-MOD) Urine Crystals None seen (NONE SEEN) Urine Bacteria Many/hpf (NONE-FEW) Urine Hyaline Casts None/lpf (NONE) Urine Granular Casts None seen (NONE SEEN) Urine Waxy Casts None seen (NONE SEEN) Urine Red Blood Cell Casts None seen (NONE SEEN) Urine White Blood Cell Casts None seen (NONE SEEN) Urine Mucus None seen (None Seen) Urine Trichomonas None seen (NONE SEEN) Urine Yeast None (NONE SEEN) Urinalysis Comment None Urine Culture Reflexed Indicated Potassium Level 4.8mEq/L (3.5-5.2) ECG Interpretation ECG Interpretation: normal axis normal intervals no acute T wave abnormalities no ST segment elevation inferior Q waves present Interpreted by: ED physician Normal ECG Interpretation: Normal rate (72), Normal sinus rhythm X-Ray Chest Interpretation Chest Xray Interpretation: IMPRESSION: Mild cardiomegaly as before. New small loculated pleural fluid within the right minor fissure is of uncertain etiology and clinical significance. Dictated by: Guillermo Infante M.D. on 10/20/2016 at 15:51 Approved by: Guillermo Infante M.D. on 10/20/2016 at 15:52 View: Portable, 1 view Interpretation / Wet Read by: Interpret - Radiologist X-Ray Interpretation Xray Interpretation: IMPRESSION: No acute fracture. No acute osseous lesion. If symptoms and/or clinical suspicion for pathology persists, further assessment with repeat radiographs or advanced imaging (e.g. CT, MRI or bone scan) may be helpful for further assessment. Dictated by: Mariya Chen MD, PhD on 10/20/2016 at 16:58 Approved by: Mariya Chen MD, PhD on 10/20/2016 at 16:59 X-Ray Ordered: Ankle right Interpretation / Wet Read by: Interpret - Radiologist Xray Interpretation: IMPRESSION: No fracture. No acute osseous lesion. If symptoms and/or clinical suspicion for pathology persists, further assessment with repeat radiographs or advanced imaging (e.g. CT, MRI or bone scan) may be helpful for further assessment. Dictated by: Mariya Chen MD, PhD on 10/20/2016 at 16:55 Approved by: Mariya Chen MD, PhD on 10/20/2016 at 16:56 X-Ray Ordered: Knee left Interpretation / Wet Read by: Interpret - Radiologist Xray Interpretation: IMPRESSION: No fracture. No acute osseous lesion. If symptoms and/or clinical suspicion for pathology persists, further assessment with repeat radiographs or advanced imaging (e.g. CT, MRI or bone scan) may be helpful for further assessment. Dictated by: Mariya Chen MD, PhD on 10/20/2016 at 16:56 Approved by: Mariya Chen MD, PhD on 10/20/2016 at 16:57 X-Ray Ordered: Knee right Interpretation / Wet Read by: Interpret - Radiologist Re-Eval/Medical Decision Med Decision/Clinical Course Patient is a 65 year old female with a history of CHF, restrictive airway disease on 3L of oxygen at home, hypertension, previous PE, diabetes, rectal cancer and hypertension who presents to the ED via EMS after a ground level fall. She complains of bilateral knee pain, right ankle pain, generalized weakness at baseline and odorous/dark urine over the last couple days. Patient denies hitting her head, losing consciousness, headache, chest pain, dysuria, shortness of breath, abdominal pain, vomiting, diarrhea, slurred speech, facial droop or one sided weakness. Patient reports that she generally has knee pain due to her osteoarthritis but it has increased after her fall. She was trying to get out of her lift chair while at home when she fell on her knees to the ground. The patient states that she was unable to get up on her own after the fall and normally uses a cane/walker to help her walk inside and her wheelchair outside. Here in the emergency department the patient is afebrile, hemodynamically stable and in no apparent distress with examination as above. No evidence of significant acute traumatic injury on head to toe examination. The patient was given [place] for pain with good effect. Adverse studies were obtained as below CBC unremarkable, CMP noteable for an elevated Potassium of 5.5 which is increased from baseline (repeat potassium was 4.8), CMP otherwise unremarkable trop neg normal coag studies urinalysis demonstrated positive nitrites, trace leukocyte esterase, many bacteria (catheterized specimen), sent for culture EKG: sinus rhythm, 72bpm normal axis, normal intervals, no ST segment elevation, no acute T wave abnormalities inferior Q waves present unchanged when compared to prior from 03/06/16 Ankle and both knee X-rays were negative for fractures Patient presents after a ground-level fall. Her constellation of symptoms is extremely vague though she does report that she feels somewhat weak and perhaps more so than normal. Plain films demonstrate no acute fractures and full head to toe examination reveals no evidence of significant injury. I do not feel that imaging of her head, spine, chest, abdomen or pelvis is indicated as examination is very reassuring. She is noted to have urinary tract infection on catheterized specimen and I have started her on a seven-day course of ciprofloxacin. She is afebrile and nontoxic in appearance and I do not feel that admission or IV antibiotics are indicated. I had a long discussion with the patient and her family regarding the above findings. They state that they feel comfortable with her going home and they will bring her right back should she develop any new or worsening symptoms. She is advised to use her walker at all times when ambulating and get assistance from family. Family feels that she is currently safe going home. Prior to discharge follow-up and return precautions were reviewed in detail with the patient and family who verbalized understanding and agreement with the plan. The patient was discharged in stable condition. She was initially noted to be hyperkalemic however I suspect that this was due to hemolysis as her repeat lab draw demonstrated normal potassium level. She is without increased dyspnea, tachycardia, tachypnea or findings suggestive of embolism and initial screening workup for acute coronary syndrome is reassuring and her presentation is not suggestive of ACS. Time of Eval: 17:46 Re-Evaluation/Progress Note: Discussed results and plan for discharge. Patient understands and agrees to plan. All questions were addressed. Counseled Regarding: Diagnosis, Lab results, Need for follow-up, When/why to return to ED Discharge & Departure Primary Impression: Hyperkalemia Additional Impressions: UTI (urinary tract infection) Urinary tract infection type: site unspecified Hematuria presence: without hematuria Qualified Code: N39.0 - Urinary tract infection, site not specified Generalized weakness Fall from ground level Osteoarthritis of knees, bilateral Osteoarthritis type: unspecified Qualified Code: M17.0 - Bilateral primary osteoarthritis of knee Disposition: Home Discharge Condition All VS Reviewed: Yes Condition: Stable Patient Instructions: Urinary Tract Infection in Women (ED) Additional Instructions: Thank you for seeking care at the emergency room. Your urine showed evidence of a UTI. It is possible your weakness is from the UTI. Our primary goal today in the Emergency Department was to evaluate you for any life-threatening conditions. Your evaluation was reassuring. There was no evidence of any fracture in your ankle or knees. Be sure to use your walker, to help relieve pressure on your knees. You will be discharged with a prescription for Cipro. You should follow-up with your primary doctor in the next week. You should return to the Emergency Department immediately if you develop fevers , vomiting, cough, shortness of breath, chest pain, lightheadedness, weakness or any other concerning signs or symptoms. Thank you for letting us partake in your care today. Referrals: Wil Bautista MD (PCP) Erika Attestation Portions of this note were transcribed by Grecia Osman. I, Dr. Juares personally performed the history, physical exam and medical decision-making; I reviewed and confirmed the accuracy of the information in the transcribed note. Signed by: Erika Gutiérrez, 10/20/16 copies to: Wil Bautista MD, Beck O MD Oct 20, 2016 16:08 Lyndsey Osman Oct 20, 2016 16:19
[2016-10-20] MEDS ORDERED: HYDROcodone-APAP 5-325 mg Tablet PO ONE (16:20)
[2016-10-20 16:30] VITALS: BP 173/64; PULSE 71; RESP 23; O2SAT 99
[2016-10-20 16:32] LABS: APPEARANCE,URINE CLEAR (CLEAR,HAZY); COLOR,URINE STRAW (YELLOW); OCCULT BLOOD,URINE NEGATIVE (NEGATIVE)
[2016-10-20 16:33] LABS: UROBILINOGEN,URINE NORMAL (NORMAL)
--- NOTE | 2016-10-20 16:58 | DRSVH ---
PROCEDURE: X-RAY LEFT KNEE, THREE VIEWS ([id number]) INDICATIONS: trauma TECHNIQUE: 3 views of the knee were acquired. COMPARISON: None. FINDINGS: Bones: No fractures or dislocations. No suspicious bony lesions. Tricompartmental osteoarthritis. Soft tissues: No joint effusion. No suspicious soft tissue calcifications. Multiple vascular clips project over the upper calf. IMPRESSION: No fracture. No acute osseous lesion. If symptoms and/or clinical suspicion for patholog y persists, further assessment with repeat radiographs or advanced imaging (e.g. CT, MRI or bone scan ) may be helpful for further assessment. Dictated by: Mariya Chen MD, PhD on 10/20/2016 at 16:55 Approved by: Mariya Chen MD, PhD on 10/20/2016 at 16:56
--- NOTE | 2016-10-20 16:59 | DRSVH ---
PROCEDURE: X-RAY RIGHT KNEE, THREE VIEWS ([id number]) INDICATIONS: trauma TECHNIQUE: 3 views of the knee were acquired. COMPARISON: [facility], , KNEE 3VW (RT), 12/17/2006, 22:58. FINDINGS: Bones: No fractures or dislocations. No suspicious bony lesions. Tricompartmental osteoarthritic de generative changes. Soft tissues: No joint effusion. No suspicious soft tissue calcifications. IMPRESSION: No fracture. No acute osseous lesion. If symptoms and/or clinical suspicion for patholog y persists, further assessment with repeat radiographs or advanced imaging (e.g. CT, MRI or bone scan ) may be helpful for further assessment. Dictated by: Mariya Chen MD, PhD on 10/20/2016 at 16:56 Approved by: Mariya Chen MD, PhD on 10/20/2016 at 16:57
--- NOTE | 2016-10-20 17:01 | DRSVH ---
PROCEDURE: X-RAY RIGHT ANKLE, MINIMUM THREE VIEWS ([id number]) INDICATIONS: trauma TECHNIQUE: 3 views of the ankle were acquired. COMPARISON: None. FINDINGS: Bones: Small ossification noted adjacent to the tip of the lateral malleolus which has well-corticat ed margins and which may represent accessory ossicle or old avulsion injury. No acute fractures or di slocations. Ankle mortise is normally aligned. No suspicious bony lesions. Soft tissues: No tibiotalar joint effusion. Achilles tendon appears normal. Soft tissue swelling is noted and ligamentous injury cannot be excluded. IMPRESSION: No acute fracture. No acute osseous lesion. If symptoms and/or clinical suspicion for pa thology persists, further assessment with repeat radiographs or advanced imaging (e.g. CT, MRI or bon e scan) may be helpful for further assessment. Dictated by: Mariya Chen MD, PhD on 10/20/2016 at 16:58 Approved by: Mariya Chen MD, PhD on 10/20/2016 at 16:59
[2016-10-20 17:03] VITALS: BP 145/66; PULSE 70; RESP 22; O2SAT 99
[2016-10-20] MEDS ORDERED: CIPR-198 PO (17:48)
[2016-10-20 18:03] VITALS: BP 123/92; PULSE 74; RESP 31; O2SAT 98
[2016-10-20 18:20] VITALS: BP 123/92; PULSE 74; RESP 31; O2SAT 98
== END 2016-10-20 18:21 | disposition home or self-care (01) ==
LOC: SED 14:56 → EDBD 14:56 → SED 18:21
DX: E87.5 Hyperkalemia (principal); N39.0 Urinary tract infection, site not specified; R53.1 Weakness; W18.39XA Other fall on same level, initial encounter; Y93.89 Activity, other specified; Y92.009 Unspecified place in unspecified non-institutional (private) residence as the place of occurrence of the external cause; Y99.8 Other external cause status; B96.20 Unspecified Escherichia coli [E. coli] as the cause of diseases classified elsewhere; M17.0 Bilateral primary osteoarthritis of knee; M25.571 Pain in right ankle and joints of right foot; I11.0 Hypertensive heart disease with heart failure; E11.59 Type 2 diabetes mellitus with other circulatory complications; I50.9 Heart failure, unspecified; J45.909 Unspecified asthma, uncomplicated; G43.909 Migraine, unspecified, not intractable, without status migrainosus; Z87.01 Personal history of pneumonia (recurrent); Z98.890 Other specified postprocedural states; Z79.4 Long term (current) use of insulin; Z79.84 Long term (current) use of oral hypoglycemic drugs; Z88.8 Allergy status to other drugs, medicaments and biological substances